=== PATIENT | male | born 1965 | race Hispanic/Latino ===

== ENCOUNTER 2017-03-04 05:55 | Day surgery (SDC) | payer MEDICAID ==
[~2017-03-04] VITALS: Ht 165.1 cm; Wt 113.9 kg
[2017-03-04] MEDS ORDERED: SODIUM CHLORIDE 0.9% 1000ML 1,000 ML IV ONE (06:24)
[2017-03-04 06:29] VITALS: BP 140/71
[2017-03-04] MEDS ORDERED: MELO-108 PO (06:41)
[2017-03-04] MEDS ORDERED: LORA-705 PO (06:41)
[2017-03-04] MEDS ORDERED: D-ME473L26 PO (06:41)
[2017-03-04] MEDS ORDERED: TEST1.25 TD (06:41)
[2017-03-04] MEDS ORDERED: LEVO50TA11 PO (06:41)
[2017-03-04] MEDS ORDERED: FURO20TA4 PO (06:41)
[2017-03-04] MEDS ORDERED: PIOG15TA6 PO (06:41)
[2017-03-04] MEDS ORDERED: METF500T6 PO (06:41)
[2017-03-04] MEDS ORDERED: GABA-531 PO (06:41)
[2017-03-04] MEDS ORDERED: RANI150T7 PO (06:41)
[2017-03-04] MEDS ORDERED: LOSA1TAB54 PO (06:41)
[2017-03-04] MEDS ORDERED: BENZ-51 PO (06:41)
[2017-03-04] MEDS ORDERED: INSU100I21 SQ ×2 (06:41)
[2017-03-04] MEDS ORDERED: MOME0.5P MC (06:41)
[2017-03-04] MEDS ORDERED: HYDR-4064 PO (06:41)
[2017-03-04] MEDS ORDERED: SIMV10TA6 PO (06:41)
[2017-03-04 06:52] VITALS: BP 141/67
[2017-03-04] MEDS ORDERED: PROPOFOL 10 MG/ML 20ML VIAL IV ONE (07:25)
[2017-03-04] MEDS ORDERED: LIDOCAINE HCL 1% 20 ML VIAL ONE (07:25)
== END 2017-03-04 09:41 ==
LOC: DAH 05:55 → ENDO 05:55
PROVIDERS: ATTEND Internal Medicine
DX: K62.1 Rectal polyp (principal); K63.5 Polyp of colon; E11.9 Type 2 diabetes mellitus without complications; E03.9 Hypothyroidism, unspecified; E78.5 Hyperlipidemia, unspecified; I10 Essential (primary) hypertension; Z98.890 Other specified postprocedural states
CPT/HCPCS: 45380; 82948 ×2; 88305; A4606; J2704; J7030